=== PATIENT | male | born 1960 | race Caucasian/White ===

== ENCOUNTER 2017-08-11 10:58 | Emergency (ER) | payer BC ==
[2017-08-11] MEDS ORDERED: Lidocaine 2% JELLY* 6 ML JELLY TOPICAL ONE ×2 (11:36→11:52)
[2017-08-11] MEDS ORDERED: Lidocaine 2% JELLY* 10 ML JELLY TOPICAL ONE (11:37)
[2017-08-11 12:36] VITALS: BP 150/91
--- NOTE | 2017-08-11 15:20 | ED ---
Elvira Gutierrez Julia, scribed for Frank Day MD on 08/11/17 at 1148 . Complex/Multi-Sys Presentation - HPI Summary HPI Summary: This patient is a 57 year old M presenting to [facility] due to a foreign body in his rectum since 01:00 today. He states a rubber dildo was put in his rectum by his girlfriend last evening and he has been unable to get it out himself. He states he could feel the base of it earlier today and notice a small amount of liquid with blood this morning He reports current fullness without significant pain. He rates the current pain a 2/10 in severity. He denies back and abdominal pain. - History Of Current Complaint Chief Complaint: EDForeignBodyEsophag Time Seen by Provider: 08/11/17 11:28 Hx Obtained From: Patient Onset/Duration: Lasting Hours, Still Present Timing: Constant Location: Pain At: - rectum Character: Pressure Associated Signs And Symptoms: Negative: Abdominal Pain, Back Pain - Allergies/Home Medications Allergies/Adverse Reactions: Allergies Allergy/AdvReac Type Severity Reaction Status Date / Time No Known Allergies Allergy Verified 08/11/17 11:10 Home Medications: Home Medications Triamterene/HCTZ 37.5-25 MG* [Dyazide CAP*] 0.5 cap PO DAILY 08/11/17 [History Confirmed 08/11/17] amLODIPine TAB* [Norvasc 5 mg TAB*] 5 mg PO DAILY 08/11/17 [History Confirmed ] PMH/Surg Hx/FS Hx/Imm Hx Cardiovascular History: Reports: Hx Hypertension Respiratory History: Denies: Hx Chronic Obstructive Pulmonary Disease (COPD) EENT History: Denies: Hx Deafness Infectious Disease History: Yes Infectious Disease History: Denies: Traveled Outside the [place] in Last 30 Days - Family History Family History: Pt denies relevant family medical history. - Social History Alcohol Use: Weekly Alcohol Amount: 2x weekly Substance Use Type: Reports: None Smoking Status (MU): Never Smoked Tobacco Review of Systems Gastrointestinal: Other - rectal "fullness" with mild pain Negative: Abdominal Pain Negative: Myalgia - back pain All Other Systems Reviewed And Are Negative: Yes Physical Exam - Summary Physical Exam Summary: Appearance: Well appearing, no pain distress Skin: warm, dry, reflects adequate perfusion Head/face: normal Eyes: EOMI, JEANNIE ENT: normal Neck: supple, non-tender Respiratory: CTA, breath sounds present Cardiovascular: RRR, pulses symmetrical Abdomen: non-tender, soft Bowel Sounds: present Musculoskeletal: normal, strength/ROM intact Neuro: normal, sensory motor intact, A&Ox3 Rectal: visualized foreign body in rectum, watery blood tinged discharged from rectum Triage Information Reviewed: Yes Vital Signs On Initial Exam: Initial Vitals Temp Pulse Resp BP Pulse Ox 99.1 F 90 14 154/87 97 08/11/17 11:16 08/11/17 11:16 08/11/17 11:16 08/11/17 11:16 08/11/17 11:16 Vital Signs Reviewed: Yes Procedures - Procedure Summary Procedure Summary: A large foreign body was visualized with a light speculum. Foreign body was unable to be removed with ring forceps. Foreign body could grasped with sharp tenaculum. There is no current bleeding. A large rubber dildo was removed, in tact. Rectal lidocaine jelly was used prior to removal. Diagnostics - Vital Signs Vital Signs Temp Pulse Resp BP Pulse Ox 08/11/17 11:16 99.1 F 90 14 154/87 97 - Laboratory Lab Statement: Any lab studies that have been ordered have been reviewed, and results considered in the medical decision making process. Re-Evaluation - Re-Evaluation First Eval Change: Improved - no sx after removal Complex Multi-Symp Course/Dx Course Of Treatment: was able to remove FB intact without any complications. No abd pain. Discharged in good condition. - Diagnoses Provider Diagnoses: Rectal foreign body Discharge - Sign-Out/Discharge Documenting (check all that apply): Discharge - Discharge Plan Condition: Good Disposition: HOME Patient Education Materials: Rectal Foreign Body (ED) Referrals: Jana Lucas MD [Medical Doctor] - Additional Instructions: Return with significant bleeding, pain, worse or other concerns. - Billing Disposition and Condition Condition: GOOD Disposition: HOME The documentation as recorded by the Elvira bermeo Julia accurately reflects the service I personally performed and the decisions made by me, Frank Day MD.
== END 2017-08-11 12:00 | disposition home or self-care (01) ==
LOC: ED 10:58
DX: T18.5XXA Foreign body in anus and rectum, initial encounter (principal); X58.XXXA Exposure to other specified factors, initial encounter; Y92.9 Unspecified place or not applicable
CPT/HCPCS: 99282; A9270-GY